=== PATIENT | male | born 1935 | race Caucasian/White ===

== ENCOUNTER 2016-09-22 13:15 | Observation (INO) | payer MEDICARE, OTHER ==
[~2016-09-22] VITALS: Ht 167.6 cm; Wt 68.0 kg
[2016-09-22 15:00] LABS: HEMOGLOBIN 13.8 gm/dl (14.0-17.5); RED BLOOD COUNT 4.92 M/UL (4.20-5.50); WHITE BLOOD COUNT 6.7 K/UL (4.5-11.0)
[2016-09-22 15:30] LABS: BUN/CREATININE RATIO 20 (0-10)
[2016-09-23] MEDS ORDERED: LOPRESSOR 25 MG25 MG PO (00:33)
[2016-09-23] MEDS ORDERED: DIOVAN160 MG PO (00:35)
[2016-09-23] MEDS ORDERED: LIPITOR TAB 2020 MG PO (00:35)
[2016-09-23 02:46] LABS: HEMOGLOBIN 11.5 gm/dl (14.0-17.5); RED BLOOD COUNT 4.12 M/UL (4.20-5.50)
[2016-09-23 02:47] LABS: BUN/CREATININE RATIO 18 (0-10)
[2016-09-24] MEDS ORDERED: ELIQUIS5 MG PO (11:32)
[2016-09-24] MEDS ORDERED: PROTONIX40 MG PO (11:32)
[2016-09-24] MEDS ORDERED: ASPIRIN EC81 MG PO (11:33)
[2016-12-20] MEDS ORDERED: TYLENOL W/CODEIN1 E1 PO (11:01)
[2016-12-20] MEDS ORDERED: LEVAQUIN500 MG PO (11:01)
[2017-03-31] MEDS ORDERED: ZOVIRAX 200 MG200 MG PO (01:39)
[2017-03-31] MEDS ORDERED: PROTONIX40 MG PO (03:19)
[2017-03-31] MEDS ORDERED: TYLENOL W/CODEIN1 E1 PO (03:20)
== END 2016-09-24 12:25 | disposition home or self-care (01) ==
LOC: ER1 13:15 → ZEROF 17:49 → MED SURG 4 17:49
PROVIDERS: Family Medicine; Physician Assistant Medical; ADMIT Family Medicine
DX: R55 Syncope and collapse (principal); I21.4 Non-ST elevation (NSTEMI) myocardial infarction; I48.91 Unspecified atrial fibrillation; I25.10 Atherosclerotic heart disease of native coronary artery without angina pectoris; I27.2 Other secondary pulmonary hypertension; I49.5 Sick sinus syndrome; I10 Essential (primary) hypertension; D53.9 Nutritional anemia, unspecified; D69.6 Thrombocytopenia, unspecified; E78.5 Hyperlipidemia, unspecified; F10.21 Alcohol dependence, in remission; Z87.891 Personal history of nicotine dependence; Z82.49 Family history of ischemic heart disease and other diseases of the circulatory system; Z80.9 Family history of malignant neoplasm, unspecified; Z79.01 Long term (current) use of anticoagulants; Z79.82 Long term (current) use of aspirin; Z79.899 Other long term (current) drug therapy; Z95.0 Presence of cardiac pacemaker; Z98.890 Other specified postprocedural states
CPT/HCPCS: ECHO; 36415; 70450; 71010; 80048; 80053; 80061; 82550; 82553; 83735; 83874; 83880; 84443; 84484; 85025; 85027; 85610; 85730; 93005; 93306; 96361; 96365; 96372; 96376; 99285; C1769; G0378; G0480; J0583; J1160; J1644; J1650; J2250; J3010; J7030; Q9965

== ENCOUNTER → 2016-12-19 | Outpatient (CLI) | payer MEDICARE, OTHER ==
[~2016-12-19] MED LIST: ASPIRIN EC81 MG PO; DIOVAN160 MG PO; ELIQUIS5 MG PO; LEVAQUIN500 MG PO; LIPITOR TAB 2020 MG PO; LOPRESSOR 25 MG25 MG PO; PROTONIX40 MG PO; TYLENOL W/CODEIN1 E1 PO; ZOVIRAX 200 MG200 MG PO
[2016-12-19 12:46] LABS: HEMOGLOBIN 13.8 gm/dl (14.0-17.5); RED BLOOD COUNT 4.8 M/UL (4.20-5.50); WHITE BLOOD COUNT 6.2 K/UL (4.5-11.0)
[2016-12-19 13:02] LABS: BUN/CREATININE RATIO 35 (0-10)
== END ==
LOC: LAB 11:46
PROVIDERS: Internal Medicine Cardiovascular Disease
DX: Z45.010 Encounter for checking and testing of cardiac pacemaker pulse generator [battery] (principal); I49.5 Sick sinus syndrome; I48.0 Paroxysmal atrial fibrillation
CPT/HCPCS: 36415; 71020; 80048; 85025

== ENCOUNTER → 2016-12-20 | Outpatient (CLI) | payer MEDICARE, OTHER | LOC: CATH 06:52 | DX: Z45.010 Encounter for checking and testing of cardiac pacemaker pulse generator [battery] (principal); I49.5 Sick sinus syndrome; I48.0 Paroxysmal atrial fibrillation; I10 Essential (primary) hypertension; E78.5 Hyperlipidemia, unspecified; I25.2 Old myocardial infarction; I25.10 Atherosclerotic heart disease of native coronary artery without angina pectoris; I99.8 Other disorder of circulatory system; R07.89 Other chest pain; F17.220 Nicotine dependence, chewing tobacco, uncomplicated; K21.9 Gastro-esophageal reflux disease without esophagitis; R55 Syncope and collapse; R09.02 Hypoxemia; Z79.01 Long term (current) use of anticoagulants; Z79.82 Long term (current) use of aspirin; Z79.899 Other long term (current) drug therapy | CPT/HCPCS: C1785; J2250; J3010; J3370; J7040; J7050 ==

== ENCOUNTER 2020-12-31 15:48 | Emergency (ER) | payer MEDICARE ==
[~2020-12-31 15:48] MED LIST changes: +ASPIRIN CHEWABL81 MG PO
[2020-12-31] MEDS ORDERED: CEPHALEXIN500 MG PO (16:16)
[2020-12-31] MEDS ORDERED: HYDROCODON-ACE1 EAC4 PO (16:50)
== END 2020-12-31 16:56 | disposition home or self-care (01) ==
LOC: ER1 15:48
DX: T25.521A Corrosion of first degree of right foot, initial encounter (principal); T25.122A Burn of first degree of left foot, initial encounter; T31.0 Burns involving less than 10% of body surface; I10 Essential (primary) hypertension
CPT/HCPCS: 99283

== ENCOUNTER 2021-08-04 19:19 | Emergency (ER) | payer MEDICARE ==
[~2021-08-04 19:19] MED LIST changes: +CEPHALEXIN500 MG PO; +HYDROCODON-ACE1 EAC4 PO
[2021-08-04 19:57] LABS: HEMOGLOBIN 14.6 gm/dl (14.0-17.5); RED BLOOD COUNT 4.94 M/UL (4.20-5.50); WHITE BLOOD COUNT 5.7 K/UL (4.5-11.0)
[2021-08-04 20:09] LABS: BUN/CREATININE RATIO 15 (0-10)
== END 2021-08-05 | disposition home or self-care (01) ==
LOC: ER1 19:19
PROVIDERS: Student in an Organized Health Care Education/Training Program
DX: S41.112A Laceration without foreign body of left upper arm, initial encounter (principal); S00.83XA Contusion of other part of head, initial encounter; Z95.0 Presence of cardiac pacemaker; Z20.822 Contact with and (suspected) exposure to COVID-19; R53.1 Weakness; R19.7 Diarrhea, unspecified; W19.XXXA Unspecified fall, initial encounter; Y92.002 Bathroom of unspecified non-institutional (private) residence as the place of occurrence of the external cause; E86.0 Dehydration
CPT/HCPCS: 70450; 71045; 80048; 82550; 82553; 83880; 84484; 85025; 90715; 93005; 99285; G0480; U0002